=== PATIENT | female | born 1980 | race Two or more races ===

== ENCOUNTER 2020-09-26 16:59 | Emergency (ER) | payer MEDICAID ==
[~2020-09-26] VITALS: Ht 160 cm; Wt 70.8 kg
[2020-09-26 17:59] LABS: BASOPHILS % (AUTO) 0.6 % (0.0-2.0); EOSINOPHILS % (AUTO) 3.6 % (0.0-6.0); HEMATOCRIT 39 % (33-45); HEMOGLOBIN 13.2 g/dL (11.5-14.8); LYMPHOCYTES # (AUTO) 2.8 /CMM (0.8-4.8); LYMPHOCYTES % (AUTO) 36.6 % (20.0-44.0); MEAN CORPUSCULAR HGB CONC 34 g/dl (31.0-36.0); MEAN CORPUSCULAR VOLUME 88 fL (82-100); MONOCYTES # (AUTO) 0.5 /CMM (0.1-1.30); MONOCYTES % (AUTO) 6.1 % (2.0-12.0); NEUTROPHILS # (AUTO) 4.1 /CMM (1.8-8.9); NEUTROPHILS % (AUTO) 53.1 % (43.0-81.0); PLATELET COUNT (AUTO) 381 /CMM (150-450); RED BLOOD CELL COUNT(AUTO) 4.43 MIL/uL (4.0-5.2); WHITE BLOOD COUNT (AUTO) 7.7 K/uL (4.3-11.0)
[2020-09-26] MEDS ORDERED: IV NS 0.9% 1,000 ML BAG IV ONE (18:00)
--- NOTE | 2020-09-26 18:05 | NUR ---
BIBS FROM HOME TO ER BED 17. AAOX4. NOT IN RESP DISTRESS. AMBULATORY. CAME IN FOR FRONTAL HEADACHE SINCE YESTERDAY. PER PT, PAIN IS 8/10 THROBBING. NO NEURO DEFICIT NOTED. MD WAS AT THE BEDSIDE FOR EVAL. ORDERS RECEIVED, NOTED AND CARRIED OUT. IV LINE ESTABLSIHED ON R AC 20G, BLOOD DRAWN GIVEN TO PHLEB. ROMMEL SENT WELL TO LAB.
[2020-09-26 18:07] LABS: CALCIUM, SERUM 9.4 mg/dL (8.5-10.1); CREATININE 0.7 mg/dL (0.6-1.3); POTASSIUM 3.4 mmol/L (3.5-5.1)
[2020-09-26 18:12] LABS: BILIRUBIN,DIRECT 0.1 mg/dL (0.0-0.2); BILIRUBIN,TOTAL 0.3 mg/dL (0.2-1.0); TOTAL PROTEIN, SERUM 8.3 g/dL (6.4-8.2)
[2020-09-26 18:14] LABS: BILIRUBIN,URINE Negative (NEGATIVE); COLOR,URINE YELLOW (YELLOW); LEUKOCYTE ESTERASE ,URINE Negative (NEGATIVE); NITRITE, URINE Negative (NEGATIVE); PH,URINE 5.5 (5.0-8.0); PROTEIN,URINE Negative (NEGATIVE); UGLUCOSE Negative (NEGATIVE); UROBILINOGEN,URINE 0.2 EU/dL (0.2)
[2020-09-26 18:16] LABS: BACTERIA,URINE Rare /HPF (None Seen); SQUAMOUS EPITHELIAL CELL,UR Few /HPF (None Seen); WBC,URINE NONE SEEN /HPF (0-3)
--- NOTE | 2020-09-26 18:26 | NUR ---
PT TO CT ON MARK ANTHONY
--- NOTE | 2020-09-26 20:01 | NUR ---
LINUS OCASIO AT BEDSIDE TALKING TO PT
[2020-09-26 20:21] VITALS: BP 118/59
--- NOTE | 2020-09-26 20:22 | NUR ---
Patient discharged to home in stable condition. Written and verbal after care instructions given. Patient verbalizes understanding of instruction.IV removed. Catheter intact and site benign. Pressure and 4x4 applied to site. No bleeding noted. Pt ambulatory with a steady gait
== END 2020-09-26 20:22 | disposition home or self-care (01) ==
LOC: ER 17:02
DX: R51.9 Headache, unspecified (principal); R20.2 Paresthesia of skin; R11.0 Nausea; R10.13 Epigastric pain; E87.6 Hypokalemia; E11.65 Type 2 diabetes mellitus with hyperglycemia; R31.9 Hematuria, unspecified
CPT/HCPCS: 36415; 70450; 80048; 80076; 81001; 82962; 83690; 84703; 85025; 96360; 99284; J7030